=== PATIENT | male | born 1945 | race Caucasian/White ===

== ENCOUNTER → 2023-04-29 06:25 | Outpatient (REF) | payer MEDICARE, SELFPAY ==
[2023-04-29 09:45] LABS: ALT (SGPT) 23 U/L (0-50); AST (SGOT) 28 U/L (17-59); Albumin 3.8 g/dl (3.5-5.0); Alkaline Phosphatase 67 U/L (38-126); Blood Urea Nitrogen 14 mg/dl (9-20); Calcium 8.6 mg/dl (8.4-10.2); Carbon Dioxide 33 mmol/L (22-30); Chloride 102 mmol/L (98-107); Glucose 89 mg/dl (70-99); HDL Cholesterol 48 mg/dl; LDL Cholesterol, Calculated 58 mg/dl; Potassium 3.5 mmol/L (3.5-5.1); Sodium 138 mmol/L (135-145); Total Bilirubin 1.2 mg/dl (0.2-1.3); Total Cholesterol 124 mg/dl (50-199); Total Protein 6.5 g/dl (6.3-8.2); Triglyceride 92 mg/dl (10-149); Very Low Density Lipoprotein 18 mg/dl (0-30); eGFR > 60.00
== END ==
LOC: HWLAB 06:25
PROVIDERS: ATTENDING PHYSICIAN Internal Medicine
DX: E78.5 Hyperlipidemia, unspecified (principal)
CPT/HCPCS: 36415; 80053; 80061

== ENCOUNTER → 2024-08-19 06:17 | Outpatient (REF) | payer MEDICARE, SELFPAY ==
[2024-08-19 09:26] LABS: % Eosinophils 2.2 % (0-6); % Lymphocytes 38.2 % (20.5-51.1); % Monocytes 8.4 % (1.7-9.3); % Neutrophils 50.2 % (42.2-75.2); Absolute Basophils 0.1 10^3/uL (0-0.2); Absolute Eosinophils 0.1 10^3/uL (0-0.7); Absolute Lymphocytes 1.9 10^3/uL (1.2-3.4); Absolute Monocytes 0.4 10^3/uL (0.1-0.6); Absolute Neutrophils 2.5 10^3/uL (1.4-6.5); Hemoglobin 13.6 g/dL (13.0-18.0); Mean Corp Hgb Conc. 34.9 g/dL (33.0-37.0); Mean Corpuscular Hgb 33.2 pg (27.0-31.0); Mean Corpuscular Volume 95.1 fL (80.0-94.0); Mean Platelet Volume 9.3 fL (7.4-10.4); Nucleated Red Blood Cells % 0 % (-); Platelet Count 193 10^3/uL (130-400); Red Cell Dist. Width 12.5 % (11.5-14.5); White Blood Cell Count 4.9 10^3/uL (4.8-10.8)
[2024-08-19 09:37] LABS: ALT (SGPT) 21 U/L (0-50); AST (SGOT) 24 U/L (17-59); Alkaline Phosphatase 52 U/L (38-126); Blood Urea Nitrogen 20 mg/dl (9-20); Carbon Dioxide 29 mmol/L (22-30); Chloride 107 mmol/L (98-107); Glucose 94 mg/dl (70-99); HDL Cholesterol 46 mg/dl; LDL Cholesterol, Calculated 67 mg/dl; Potassium 3.9 mmol/L (3.5-5.1); Sodium 144 mmol/L (135-145); Total Bilirubin 1.1 mg/dl (0.2-1.3); Total Cholesterol 125 mg/dl (50-199); Total Protein 6.6 g/dl (6.3-8.2); Triglyceride 61 mg/dl (10-149); Very Low Density Lipoprotein 12 mg/dl (0-30); eGFR > 60.00
[2024-08-19 09:48] LABS: Urine Albumin Negative (Neg - Trace); Urine Bilirubin Negative (Negative); Urine Character Clear (Clear); Urine Color Yellow; Urine Glucose Negative (Negative); Urine Ketone Negative (Negative); Urine Leukocyte Negative (Negative); Urine Nitrite Negative (Negative); Urine Occult Blood Negative (Negative); Urine Specific Gravity 1.015 (<1.030); Urine Urobilinogen 2+ (Neg - 1+); Urine pH 6.5 (5.0-9.0)
[2024-08-19 10:52] LABS: Glycohemoglobin (HgbA1c) 4.6 % (4.0-5.6)
[2024-08-19 12:36] LABS: PSA, Total - Screen 0.56 ng/ml (0.0-4.0)
== END ==
LOC: HWLAB 06:17
PROVIDERS: ATTENDING PHYSICIAN Internal Medicine
DX: R35.0 Frequency of micturition (principal); E78.5 Hyperlipidemia, unspecified; I10 Essential (primary) hypertension; D12.2 Benign neoplasm of ascending colon; Z12.5 Encounter for screening for malignant neoplasm of prostate
CPT/HCPCS: 36415; 80053; 80061; 81003; 83036; 85025; 87086; G0103